=== PATIENT | male | born 1985 | race Caucasian/White ===

== ENCOUNTER → 2017-05-25 | Outpatient (CLI) | payer BC ==
--- NOTE | 2017-05-25 10:10 | DIAGNOSTIC IMAGING REPORT ---
Study: Fusion CT sinuses. HISTORY: Sinusitis FINDINGS: Mild mucosal thickening of the maxillary sinuses. The estimated units are patent bilaterally. Very mild hyperplastic changes the nasal turbinates. Osseous structures are intact. Orbital margins show no evidence for a destructive process. All remaining sinuses are essentially clear. IMPRESSION: Mild mucosal thickening of the maxillary sinuses. 2. The ostiomeatal units are patent bilaterally. 3. Mild hyperplastic change of the nasal turbinates. Electronically signed by: Zeferino Rosenberg M.D. 05/25/2017 10:09 AM Dictated Date/Time: 05/25/2017 10:07 AM
== END | disposition home or self-care (01) ==
LOC: C.CTS 09:41
DX: J32.9 Chronic sinusitis, unspecified (principal)

== ENCOUNTER → 2017-12-03 | Day surgery (SDC) | payer OTHER ==
[2017-11-27 11:27] VITALS: Ht 182.9 cm; Wt 70.0 kg
[~2017-12-03] VITALS: Ht 182.9 cm; Wt 70.0 kg
[~2017-12-03] MED LIST: ATROPINE SULFATE 0.1 MG/ML 5ML SYR IV PRN; CEFAZOLIN 2000MG IV PUSH 10 ML IV SCH; DEXAMETHASONE SOD INJ 4 MG/ML VIAL ONE; EpHEDrine SULFATE INJ 50 MG/ML AMP IV PRN; EpINEphrine INJ 1MG/ML AMP 1 MG/ML AMP ONE; FENTANYL CITRATE INJ 50 MCG/1 ML 2 ML VIAL IV PRN; FENTANYL CITRATE INJ 50 MCG/1 ML 2 ML VIAL ONE; GLYCOPYRROLATE INJ 0.2 MG/ML VIAL ONE; HYDROCODONE/ACETAMOPHEN 5/325MG TAB PO PRN; HYDROmorphone INJ 1 MG/ML SYR IV PRN; LACTATED RINGER'S 1000ML 1,000 ML IV SCH; LIDOCAINE 4% MPF SOAK 5 ML = 1 DOSE TOP ONE; LIDOCAINE HCL 2% 2 ML VIAL (20MG/ML) ONE; LIDOCAINE/EPINEPHRINE 1% 20 ML VIAL ONE; LIDOCAINE/EPINEPHRINE 1% INJ 50 ML VIAL ONE; MIDAZOLAM HCL 1 MG/ML 2ML VIAL ONE; NEOSTIGMINE METHYLSULFATE 5 MG/5 ML SYR ONE; ONDANSETRON INJ 2 MG/ML 2 ML VIAL IV PRN; ONDANSETRON INJ 2 MG/ML 2 ML VIAL ONE; OXYMETAZOLINE HCL 0.05% NA SPR 15 ML BTL NAE SCH; OXYMETAZOLINE HCL 0.05% NA SPR 15 ML BTL PRN; PROPOFOL IV EMULSION 10 MG/ML 20 ML VIAL IV ONE
--- NOTE | 2017-12-03 09:08 | History and Physical: Surg Cnt ---
History & Physical Date Dec 03, 2017. Chief Complaint CHRONIC SINUSITIS, SEPTAL DEVIATION, AND BILATERAL INFERIOR TURBINATE HYPERTROPHY History of Present Illness The patient is a 32 year old male with complaints of CHRONIC SINUSITIS, SEPTAL DEVIATION, AND BILATERAL INFERIOR TURBINATE HYPERTROPHY WITH SYMPTOMS DESPITE MAXIMAL MEDICAL RX. Past Medical/Surgical History PMH: H/O MONO PSH: NONE Additional History Hepatic Disease: No Endocrine Disorder: No Kidney Disease: No Hypertension: No Heart Disease: No Bleeding Tendencies: No Infectious Diseases: No Allergies Coded Allergies: No Known Allergies (Unverified , 12/03/17) Home Medications No Active Prescriptions or Reported Meds Physical Examination Skin: warm/dry, no rash Eyes: normal inspection, EOMI, sclerae normal ENT: + pertinent finding (SEVERE R DNS, L>R ITH) Head: normocephalic, atraumatic Neck: supple, no adenopathy, trachea midline Respiratory/Chest: lungs clear, normal breath sounds, no respiratory distress Cardiovascular: regular rate, rhythm, no edema, no murmur Neurologic/Psych: no motor/sensory deficits, alert, normal reflexes, oriented x 3 Diagnosis CHRONIC SINUSITIS, SEPTAL DEVIATION, AND BILATERAL INFERIOR TURBINATE HYPERTROPHY Plan of Treatment IMAGE GUIDED B FESS AND INF TURB REDUCTION, SEPTOPLASTY
--- NOTE | 2017-12-03 11:01 | [facility] Operative Report ---
Operative Report Operative Date Dec 03, 2017. Pre-Operative Diagnosis Chronic sinusitis, nasal septal deviation Post-Operative Diagnosis same Procedure(s) Performed Image Guided Bilateral Endoscopic Sinus Surgery, Septoplasty, And Bilatera; Inferior Turbinate Reduction Surgeon Dr. Vega Captain Cannery Tender Surgeon(s) none Estimated Blood Loss 50ML Findings 1. SEVERE R DNS 2. L>R ITH 3. MILD MUCOSAL THICKENING B MAXILLARY AND ETHMOID SINUSES Specimens NONE I attest to the content of the Intraoperative Record and any orders documented therein. Any exceptions are noted below.
--- NOTE | 2017-12-03 11:03 | Discharge Instructions ---
Discharge Instructions Date of Service Dec 03, 2017. Admission Reason for Admission: Chronic Simusitis, Nasal Septal Deviation Discharge Discharge Diagnosis / Problem: SAME Discharge Goals Goal(s): Therapeutic intervention Activity Recommendations Activity Limitations: as noted below LIGHT ACTIVITY FOR 2 WEEKS; NO DRIVING WHILE ON NORCO . Current Hospital Diet Patient's current hospital diet: Discharge Diet Recommended Diet: Regular Diet Procedures Procedures Performed: Image Guided Bilateral Endoscopic Sinus Surgery, Septoplasty, And Bilatera; Inferior Turbinate Reduction Pending Studies Studies pending at discharge: no Medical Emergencies . Who to Call and When: Medical Emergencies: If at any time you feel your situation is an emergency, please call 911 immediately. . Non-Emergent Contact Non-Emergency issues call your: Surgeon . . "Provider Documentation" section prepared by Jhon Vega. . VTE Core Measure Inpt VTE Proph given/why not?: SCD's
--- NOTE | 2017-12-03 11:28 | OPERATIVE REPORT ---
DATE OF OPERATION: 12/03/2017 PREOPERATIVE DIAGNOSES: 1. Chronic sinusitis. 2. Right greater than left septal deviation. 3. Left greater than right inferior turbinate hypertrophy. POSTOPERATIVE DIAGNOSES: 1. Chronic sinusitis. 2. Right greater than left septal deviation. 3. Left greater than right inferior turbinate hypertrophy. PROCEDURES: [employer] fusion image guided bilateral endoscopic sinus surgery consisting of: 1. Bilateral maxillary antrostomies. 2. Bilateral anterior ethmoidectomies. 3. Bilateral arely bullosa resection. 4. Septoplasty. 5. Bilateral inferior turbinate outfracture and turbinoplasty. SURGEON: Dr. Jhon Vega. ANESTHESIA: General endotracheal. ESTIMATED BLOOD LOSS: 50 mL. FINDINGS: 1. Severe right nasal septal deviation. 2. Left greater than right inferior turbinate hypertrophy. 3. Right greater than left arely bullosa. 4. Mild mucosal thickening involving the bilateral maxillary and anterior ethmoid sinuses. SPECIMENS: None. COMPLICATIONS: None. INDICATIONS FOR THE PROCEDURE: The patient is a pleasant 32-year-old male with a history of recurrent acute and chronic sinusitis, which has been refractory to maximal medical therapy including systemic antibiotics and steroids. A posttreatment fusion CT scan of the sinuses revealed severe right greater than left septal deviation, right greater than left arely bullosa, mild mucosal thickening involving the bilateral maxillary and anterior ethmoid sinuses as well as a central frontal air cell. The patient presents for the above-mentioned procedures on an outpatient elective basis. DESCRIPTION OF PROCEDURE: After informed consent had been obtained from the patient, the patient was wheeled to the operating room and placed on the operating table in the supine position. Monitors were placed. After induction of general endotracheal anesthesia, the patient was prepped in the usual fashion for endoscopic sinus surgery. The [employer] fusion headset was placed over the forehead and was registered and verified and used throughout the case. Lidocaine and epinephrine pledgets were placed in the bilateral nasal cavities and pressure applied. The left-sided pledgets were removed. The left middle turbinate and lateral nasal wall were injected with 1% lidocaine with 1:100,000 epinephrine. Lidocaine and epinephrine pledget was then placed into the left middle meatus. The right side was then addressed in a similar fashion. The left-side pledgets were removed. A sickle knife was used to incise the left middle turbinate longitudinally and the lateral half of the middle turbinate was removed using straight Ignacio-Cut forceps and powered instrumentation to perform an endoscopic arely bullosa resection. An uncinatectomy then was performed using a Anderson elevator, straight Ignacio-Cut forceps, and powered instrumentation. The natural ostium of the left maxillary sinus was identified and this was enlarged anteriorly, inferiorly, and posteriorly using backbiting forceps and powered instrumentation. An anterior ethmoidectomy was then performed using powered instrumentation. Using a curved frontal sinus suction, an attempt to cannulate the left frontal sinus was undertaken as well as to try to cannulate the central frontal air cell. However, this was found to be quite difficult and therefore this was stopped. A pledget was then placed into the left ethmoid cavity. The right side was then addressed in a similar fashion. Once again, the frontal sinus could not be cannulated. Attention was then taken to the patient's nasal septum. All the pledgets were removed. The nasal septum was injected with 1% lidocaine with 1:100,000 epinephrine. A #15 scalpel was used to make a left Clifford incision, through which the left-sided mucoperichondrial and mucoperiosteal flaps were elevated. A #15 scalpel was then used to incise the quadrangular cartilage with care to preserve a 1.5-cm dorsal and caudal strut and the right-sided mucoperichondrial mucoperiosteal flap was elevated through this cartilaginous incision. The patient had a severe septal deviation to the right hand side posteriorly inferiorly due to a very large septal spur. The Mitul swivel knife was to remove the deviated portion of the quadrangular cartilage, which was impinging on the nasal airway anteriorly on the left hand side to more mild degree. After this had been performed, a V-shaped osteotome, mallet, and Jazmin forceps were then used to remove a large bony septal spur. The septum was then found to be midline. The septal cavity was suctioned. The left Clifford incision was closed with several simple interrupted 4-0 chromic sutures. A 4-0 plain gut suture on a Varun needle was then used to perform a quilting stitch of the mucoperichondrial and mucoperiosteal flaps bilaterally to help prevent septal hematoma. A Quinn elevator was then used to infracture and subsequently outfracture the inferior turbinates bilaterally. The inferior turbinates were injected with 1% lidocaine with 1:100,000 epinephrine. A 2.0-mm turbinate blade using powered instrumentation was then used to perform bilateral inferior turbinoplasties in a submucosal fashion. The sinonasal cavities were then suctioned. Merogel was then placed in the bilateral ethmoid cavities. An orogastric tube was placed and the stomach was suctioned free of air and stomach contents. This marked the end of the case. The patient tolerated the procedure well. There were no apparent complications. The patient was extubated and transferred to recovery room in stable condition. I attest to the content of the Intraoperative Record and any orders documented therein. Any exception s are noted below.
[2017-12-03 12:00] VITALS: TEMP 36.7
[2017-12-03 13:04] VITALS: BP 136/83; PULSE 105; O2SAT 96
--- NOTE | 2017-12-03 13:10 | Anesthesia Progress Nt - [facility] ---
Anesthesia Post Op Note Date & Time Dec 03, 2017 at 13:09 Vital Signs Pain Intensity: 0 Vital Signs Past 12 Hours Date Time Temp Pulse Resp B/P (MAP) Pulse Ox O2 Delivery O2 Flow Rate FiO2 12/03/17 13:04 105 20 136/83 (100) 96 Room Air 12/03/17 12:35 83 20 132/89 (103) 100 Room Air 12/03/17 12:00 36.7 91 20 146/95 (112) 96 Room Air 12/03/17 11:52 36.5 90 16 138/92 96 Room Air 12/03/17 11:47 96 14 96 12/03/17 11:47 96 14 12/03/17 11:45 141/89 12/03/17 11:42 99 16 12/03/17 11:42 100 16 96 12/03/17 11:40 135/95 12/03/17 11:37 89 18 12/03/17 11:37 88 18 98 12/03/17 11:36 133/87 12/03/17 11:32 100 26 12/03/17 11:32 100 26 98 12/03/17 11:30 123/86 12/03/17 11:27 102 18 12/03/17 11:27 102 18 100 12/03/17 11:25 125/78 12/03/17 11:22 94 22 12/03/17 11:22 94 22 99 12/03/17 11:20 116/57 12/03/17 11:17 94 26 12/03/17 11:17 95 26 98 12/03/17 11:16 93 26 96 12/03/17 11:16 93 26 12/03/17 11:15 122/63 12/03/17 11:11 95 23 12/03/17 11:11 94 23 119/65 93 12/03/17 11:11 36.5 97 12 119/65 Humidified Oxygen Mask 12/03/17 07:56 36.9 91 20 114/72 (86) 97 Room Air Notes Mental Status: alert / awake / arousable, participated in evaluation Pt Amnestic to Procedure: Yes Nausea / Vomiting: adequately controlled Pain: adequately controlled Airway Patency, RR, SpO2: stable & adequate BP & HR: stable & adequate Hydration State: stable & adequate Anesthetic Complications: no major complications apparent
--- NOTE | 2017-12-03 13:19 | Progress Note ---
Progress Note Date of Service Dec 03, 2017. Progress Note Anesthesia Note: Pt was about to be discharged from [facility]. Upon listening to d/c instructions and removal of pt's IV, pt's passed out, fell down and hit her head. Nursing staff came and help her out and sat her down. VS was taken and was normal. Pt's stated that she does get dizzy when seeing blood. No open wound noted, just a small bump on the back of her head. Recommended to patient's to be checked out in the ED due to hitting her head but she declined. She states that she is feeling fine now, able to drive and not having any symptoms such as dizziness, headache, blurry vision, n/v. Instructed patient and his that if she develops any of those symptoms later today to go to ED to get worked up for her head injury. Pt and his understand and agree with plan.
== END | disposition home or self-care (01) ==
LOC: X.SURG 07:19
DX: J32.9 Chronic sinusitis, unspecified (principal); J34.2 Deviated nasal septum; J34.3 Hypertrophy of nasal turbinates